=== PATIENT | male | born 1970 | race Caucasian/White ===

== ENCOUNTER 2017-05-06 20:13 | Emergency (ER) | payer MEDICAID, OTHER ==
[~2017-05-06] VITALS: Ht 177.8 cm; Wt 100.0 kg
[2017-05-06 22:00] VITALS: BP 132/73
== END 2017-05-06 22:47 | disposition home or self-care (01) ==
LOC: ER 20:24
DX: Z02.79 Encounter for issue of other medical certificate (principal); I10 Essential (primary) hypertension; J45.909 Unspecified asthma, uncomplicated
CPT/HCPCS: 99283